=== PATIENT | male | born 1995 | race Caucasian/White ===

== ENCOUNTER 2023-06-03 10:14 | Emergency (ER) | payer MEDICAID ==
[~2023-06-03] VITALS: Ht 172.7 cm; Wt 70.8 kg
[2023-06-03 10:50] VITALS: BP 118/85; PULSE 72; RESP 16; TEMP 97.8; O2SAT 98
[2023-06-03] MEDS ORDERED: IBUP-1454 PO (11:58)
[2023-06-03] MEDS ORDERED: METH-1182 PO (11:58)
== END 2023-06-03 12:04 | disposition home or self-care (01) ==
LOC: ER 10:14
DX: S29.012A Strain of muscle and tendon of back wall of thorax, initial encounter (principal); S29.011A Strain of muscle and tendon of front wall of thorax, initial encounter; V43.52XA Car driver injured in collision with other type car in traffic accident, initial encounter; Y93.89 Activity, other specified; Y92.488 Other paved roadways as the place of occurrence of the external cause; Y99.8 Other external cause status
CPT/HCPCS: 72070